=== PATIENT | male | born 1945 | race Caucasian/White ===

== ENCOUNTER → 2020-06-07 14:13 | Outpatient (BNVA) | payer MEDICARE, SELFPAY | PROVIDERS: Family Provider Nurse Practitioner; PCP Nurse Practitioner; Visit Provider Nurse Practitioner | DX: M54.9 Dorsalgia, unspecified (principal); M62.830 Muscle spasm of back; E55.9 Vitamin D deficiency, unspecified | CPT/HCPCS: 80053; 82306; 85025; 86140 ==

== ENCOUNTER 2020-06-08 10:16 | Outpatient (CLI) | payer MEDICARE, SELFPAY ==
--- NOTE | 2020-06-08 10:30 | XR_ITS ---
WS: [id number] Cervical spine, 3 views, 06/08/2020 Clinical Data: M54.9 - Dorsalgia, unspecified Comparison: None. Findings: No compression fractures are seen. There is disc space narrowing at C3-C4, C5-C6 and C6-C7. There is anterior osteophytic spurring at C5, C6 and C7. There is no prevertebral soft tissue swelli ng. The odontoid is unremarkable. The soft tissues of the neck and the lung apices are normal. XR/XR cervical spine 3V* [id number] Impression: 1. Degenerative disc narrowing at C3-C4, C5-C6 and C6-C7. 2. Osteoarthritic spurs at C5-C7.
--- NOTE | 2020-06-08 10:30 | XR_ITS ---
WS: [id number] Thoracic spine, 4 views, 06/08/2020 Clinical Data: M54.9 - Dorsalgia, unspecified Comparison: None. Findings: No compression fractures are seen. The disc heights are normal. There is moderate osteoarthritic spurring from T6 through T12. Osteoporosis is present. The paraverte bral areas are unremarkable. XR/XR thoracic spine 3V* [id number] Impression: Osteoarthritis and osteoporosis.
--- NOTE | 2020-06-08 10:30 | XR_ITS ---
WS: [id number] Lumbar spine, 3 views, 06/08/2020 Clinical Data: M54.9 - Dorsalgia, unspecified Comparison: None. Findings: No compression fractures or subluxation is seen. There is degenerative disc narrowing at L4-L5 and L5 -S1. There is anterior osteoarthritic spurring of the lower thoracic and all lumbar vertebral bodies. . The transverse processes and SI joints are normal. There is calcification in the wall of the abdominal aorta but no aneurysm is seen. XR/XR lumbar spine 2-3V* [id number] Impression: 1. Moderate osteoarthritis of all the lumbar vertebral bodies. 2. Degenerative disc narrowing at L4-L5 and L5-S1.
== END 2020-06-08 10:17 | disposition home or self-care (01) ==
PROVIDERS: Family Provider Nurse Practitioner; PCP Nurse Practitioner; Visit Provider Nurse Practitioner
DX: M54.2 Cervicalgia (principal); M47.816 Spondylosis without myelopathy or radiculopathy, lumbar region; M81.0 Age-related osteoporosis without current pathological fracture; M47.814 Spondylosis without myelopathy or radiculopathy, thoracic region
CPT/HCPCS: 72040; 72072; 72100

== ENCOUNTER → 2020-06-30 10:39 | Outpatient (BNVA) | payer MEDICARE, SELFPAY | PROVIDERS: Family Provider Nurse Practitioner; PCP Nurse Practitioner; Referring Provider Nurse Practitioner; Visit Provider Orthopaedic Surgery | DX: M50.30 Other cervical disc degeneration, unspecified cervical region (principal) | CPT/HCPCS: 72050 ==

== ENCOUNTER 2020-07-06 06:00 | Outpatient (RCR) | payer MEDICARE, SELFPAY | END 2020-07-29 23:59 | disposition home or self-care (01) | LOC: TPT 06:00 | PROVIDERS: PCP Nurse Practitioner; Referring Provider Orthopaedic Surgery; Visit Provider Orthopaedic Surgery | DX: M54.2 Cervicalgia (principal); M54.9 Dorsalgia, unspecified | CPT/HCPCS: 97110; 97140; 97161; G0283 ==

== ENCOUNTER 2020-07-14 15:47 | Outpatient (CLI) | payer MEDICARE, SELFPAY ==
--- NOTE | 2020-07-14 16:00 | MR_ITS ---
WS: [id number] MRI CERVICAL SPINE NONCONTRAST HISTORY: M50.30 - Other cervical disc degeneration, unspecified cervical region COMPARISON: None available. Technique: Multiplanar, multisequence noncontrast imaging of the cervical spine. Very mild increase in the cervical lordosis. 2 mm retrolisthesis of C3 and C5. 2 mm anterolisthesis o f C7. No marrow edema or fracture. Signal within the cervical cord is normal. Visualized posterior fossa is unremarkable. Craniocervical junction, C1 and C2 relationship, odontoid process and soft tissues are normal. C2-C3: Normal. C3-C4: Mild annular disc bulging and osteophytic ridging with a shallow central disc protrusion. Disc osteophyte complexes are causing moderate central and bilateral foraminal stenosis. C4-C5: Mild diffuse annular disc bulging and osteophytic ridging. Mild facet arthritis. Minimal centr al stenosis. Moderate bilateral foraminal stenosis. C5-C6: Diffuse annular disc bulging and osteophytic ridging. More focal disc osteophyte complex in th e RIGHT foramen. Moderate central with moderate to severe bilateral foraminal stenosis. C6-C7: Mild annular disc bulging and osteophytic ridging. Osteophytes are displacing the nerve roots posteriorly. Moderate bilateral foraminal stenosis. C7-T1: Mild annular disc bulging with a focal RIGHT paracentral disc protrusion and annular fissure. Very mild encroachment upon the foramen. Paraspinal soft tissue are normal. MR/MR cervical spin wo con* [id number] IMPRESSION: 1. Multilevel moderate spondylosis throughout the cervical spine. Most signifi cant disc disease at C5-6. 2. Mild retrolisthesis of C3 and C5 and slight anterolisthesis of C7. 3. Moderate central and bilateral foraminal stenosis due to disc osteophyte di sease at C3-4. 4. Moderate central with moderate to severe bilateral foraminal stenosis at C5 -6. 5. Moderate bilateral foraminal stenosis at C4-5 and C6-7. 6. Small focal RIGHT paracentral disc protrusion with annular fissure at C7-T1 without cord contact.
--- NOTE | 2020-07-14 16:45 | MR_ITS ---
WS: [id number] MRI THORACIC SPINE noncontrast. HISTORY: M50.30 - Other cervical disc degeneration, unspecified cervical and thoracic pain. COMPARISON: None available. TECHNIQUE: Multiplanar sequences are performed in sagittal and axial planes. Very slight increase in the thoracic kyphosis centered at T4. No marrow edema or fracture. Signal wit hin the cord is normal. Conus tapers normally and ends near L1. Very minimal anterior wedging of T2 a nd T3. T1-2: Mild bilateral facet arthritis. Mild foraminal narrowing. T2-3: Moderate LEFT and mild RIGHT foraminal stenosis due to facet disease. T3-4: Mild facet arthritis without stenosis. T4-5: Minimal LEFT foraminal narrowing due to facet disease. T5-6: Mild facet arthritis. T6-7: Mild bilateral facet arthritis without stenosis. T7-8: Mild bilateral facet joint arthritis. No stenosis. T8-9: Moderate bilateral facet joint arthritis with mild bilateral foraminal narrowing. T9-10: Moderate bilateral foraminal stenosis predominantly due to facet joint arthritis and ligament um flavum hypertrophy. No disc protrusion. T10-11: Moderate bilateral foraminal stenosis and facet arthritis. T11-12: Mild bilateral facet joint arthritis. MR/MR thoracic spin wo con* [id number] IMPRESSION: 1. No acute thoracic spine fractures. 2. No significant central stenosis. 3. Multilevel foraminal stenosis due to facet joint arthritis and ligamentum f lavum hypertrophy. The most significant narrowing is moderate on the LEFT at T2 -3 and bilateral at T9-10 and T10-11.
== END 2020-07-14 15:48 | disposition home or self-care (01) ==
LOC: RADSHAW 15:49
PROVIDERS: PCP Nurse Practitioner; Visit Provider Orthopaedic Surgery
DX: M50.30 Other cervical disc degeneration, unspecified cervical region (principal); M47.892 Other spondylosis, cervical region; M48.02 Spinal stenosis, cervical region
CPT/HCPCS: 72141; 72146

== ENCOUNTER → 2020-07-22 08:28 | Outpatient (BNVA) | payer MEDICARE, SELFPAY | PROVIDERS: PCP Nurse Practitioner; Referring Provider Orthopaedic Surgery; Visit Provider Anesthesiology Pain Medicine | DX: M48.02 Spinal stenosis, cervical region (principal); M50.30 Other cervical disc degeneration, unspecified cervical region; M47.812 Spondylosis without myelopathy or radiculopathy, cervical region; M47.814 Spondylosis without myelopathy or radiculopathy, thoracic region | CPT/HCPCS: 99205 ==

== ENCOUNTER 2020-07-30 06:00 | Outpatient (RCR) | payer MEDICARE, SELFPAY | END 2020-08-29 23:59 | disposition home or self-care (01) | LOC: TPT 06:00 | PROVIDERS: PCP Nurse Practitioner; Referring Provider Orthopaedic Surgery; Visit Provider Orthopaedic Surgery | DX: M54.2 Cervicalgia (principal); M54.9 Dorsalgia, unspecified | CPT/HCPCS: 97110; 97140; 97164 ==

== ENCOUNTER → 2020-08-02 14:53 | Outpatient (BNVA) | payer MEDICARE, SELFPAY | PROVIDERS: PCP Nurse Practitioner; Visit Provider Anesthesiology Pain Medicine | DX: M48.02 Spinal stenosis, cervical region (principal) | CPT/HCPCS: 62321; J1100 ==

== ENCOUNTER → 2020-08-16 13:00 | Outpatient (BNVA) | payer MEDICARE, SELFPAY | PROVIDERS: PCP Nurse Practitioner; Visit Provider Anesthesiology Pain Medicine | DX: G89.29 Other chronic pain (principal); M54.12 Radiculopathy, cervical region; M48.02 Spinal stenosis, cervical region | CPT/HCPCS: 62321; J1100 ==

== ENCOUNTER → 2020-09-01 14:05 | Outpatient (BNVA) | payer MEDICARE, SELFPAY | PROVIDERS: PCP Nurse Practitioner; Visit Provider Anesthesiology Pain Medicine | DX: M48.02 Spinal stenosis, cervical region (principal); M50.30 Other cervical disc degeneration, unspecified cervical region; M47.812 Spondylosis without myelopathy or radiculopathy, cervical region; M47.814 Spondylosis without myelopathy or radiculopathy, thoracic region | CPT/HCPCS: 99213 ==

== ENCOUNTER → 2020-11-24 12:51 | Outpatient (BNVA) | payer MEDICARE, SELFPAY | PROVIDERS: PCP Nurse Practitioner; Visit Provider Anesthesiology Pain Medicine | DX: G89.29 Other chronic pain (principal); M48.02 Spinal stenosis, cervical region; M50.30 Other cervical disc degeneration, unspecified cervical region; M47.812 Spondylosis without myelopathy or radiculopathy, cervical region; M47.814 Spondylosis without myelopathy or radiculopathy, thoracic region | CPT/HCPCS: 99213 ==

== ENCOUNTER → 2021-05-18 13:01 | Outpatient (BNVA) | payer MEDICARE, SELFPAY | PROVIDERS: PCP Nurse Practitioner; Visit Provider Anesthesiology Pain Medicine | DX: M48.02 Spinal stenosis, cervical region (principal); M50.30 Other cervical disc degeneration, unspecified cervical region; M47.814 Spondylosis without myelopathy or radiculopathy, thoracic region; M47.812 Spondylosis without myelopathy or radiculopathy, cervical region; Z87.891 Personal history of nicotine dependence | CPT/HCPCS: 99213 ==

== ENCOUNTER → 2021-11-01 09:47 | Outpatient (BNVA) | payer MEDICARE, SELFPAY | PROVIDERS: PCP Nurse Practitioner; Visit Provider Anesthesiology Pain Medicine | DX: M48.02 Spinal stenosis, cervical region (principal); M50.30 Other cervical disc degeneration, unspecified cervical region; M47.814 Spondylosis without myelopathy or radiculopathy, thoracic region; M47.812 Spondylosis without myelopathy or radiculopathy, cervical region; Z87.891 Personal history of nicotine dependence | CPT/HCPCS: 99213 ==

== ENCOUNTER 2022-06-25 17:08 | Emergency (ER) | payer MEDICARE, SELFPAY ==
[2022-06-25 17:11] VITALS: PULSE 65; RESP 16; TEMP 36.1; O2SAT 98; BMI 32.1
[2022-06-25 17:19] VITALS: BP 123/93
--- NOTE | 2022-06-25 18:07 | CTR_ITS ---
PROCEDURE INFORMATION: Exam: CT Head Without Contrast Exam date and time: 06/25/2022 6:30 PM Age: 77 years old Clinical indication: Syncope and collapse TECHNIQUE: Imaging protocol: Computed tomography of the head without contrast. Radiation optimization: All CT scans at this facility use at least one of these dose optimization techniques: automated exposure control; mA and/or kV adjustment per patient size (includes targeted exams where dose is matched to clinical indication); or iterative reconstruction. REPORTING DATA: Count of CT and Cardiac NM exams in prior 12 months: This patient has received 0 known CTs and 0 known cardiac nuclear medicine studies in the 12 months prior to the current study. COMPARISON: No relevant prior studies available. RADIATION DOSE METRICS: Total DLP (mGy-cm): 1079.28 FINDINGS: Brain: No acute intracranial hemorrhage. No acute infarct. No intra-axial or extra-axial masses. White-white matter differentiation is preserved. No cerebral edema. No extra-axial fluid collections. No midline shift. Mild atrophy of the brain parenchyma. Mildly decreased attenuation in the deep white matter, consistent with mild chronic microangiopathic change. Cerebral ventricles: No hydrocephalus. Paranasal sinuses: Opacification in the visualized left maxillary sinus. Other visualized paranasal sinuses are clear. Mastoid air cells: Small amount of fluid in the right mastoid air cells. Left mastoid air cells are clear. Orbital cavities: No acute abnormality in the visualized orbits. Dental: The patient is edentulous. Bones/joints: No acute fracture. Soft tissues: No acute abnormality of the extracranial soft tissues. Vasculature: Atherosclerotic changes in the visualized arteries. CT/CT head wo con* [id number] IMPRESSION: 1. No acute abnormality of the brain. 2. Opacification in the visualized left maxillary sinus. 3. Small amount of fluid in the right mastoid air cells. 4. Mild atrophy of the brain parenchyma. 5. Mild chronic white matter microangiopathic change. 6. Incidental/nonacute findings are listed in the report.
--- NOTE | 2022-06-25 18:07 | XRR_ITS ---
PROCEDURE INFORMATION: Exam: XR Chest Exam date and time: 06/25/2022 6:12 PM Age: 77 years old Clinical indication: Other: Syncope TECHNIQUE: Imaging protocol: Radiologic exam of the chest. Views: 1 view. COMPARISON: No relevant prior studies available. FINDINGS: Lungs: Lungs are clear bilaterally. Pleural spaces: No pleural effusion. No pneumothorax. Heart/Mediastinum: Cardiac silhouette is moderately enlarged. Mediastinal contours are unremarkable. Bones/joints: Unremarkable for age. XR/XR chest 1V portable [id number] IMPRESSION: 1. No acute cardiopulmonary process. 2. Incidental/nonacute findings are listed in the report.
--- NOTE | 2022-06-25 18:07 | ECG_ITS ---
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 Measurements Intervals [place] Rate: 80 P: 0 MD: 0 QRS: -18 QRSD: 117 T: 28 QT: 381 QTc: 439 Interpretive Statements ATRIAL FIBRILLATION WITH ABERRANT CONDUCTION OR VENTRICULAR PREMATURE COMPLEXES MODERATE INTRAVENTRICULAR CONDUCTION DELAY [105+ ms QRS DURATION, 80+ ms Q/S IN V1/V2, NO Q AND 60+ ms R IN I/aVL/V5/V6] NONSPECIFIC T-WAVE ABNORMALITY No previous ECG available for comparison Electronically Signed On 06-25-2022 19:27:50 CDT by Bhupendra Carbajal M.D. [id number]
--- NOTE | 2022-06-25 18:22 | W.ED.SYNCOPE ---
HPI - Syncope General: Chief Complaint: Syncope Stated Complaint: SYNCOPAL EPISODE Time Seen by Provider: 06/25/22 18:13 Source: patient and EMS Mode of arrival: EMS Limitations: no limitations History of Present Illness: 77-year-old male states roughly an hour and a half ago he had stood up and went outside states he does not remember what happened but he had passed out outside woke up he states he stood up and felt a little dizzy again he denies any chest pain denies any vomiting or diarrhea he states he feels much improved currently. He denies any worsening proving factors he denies hitting his head or headache at this time. Associated symptoms: Deny abdominal pain, fever(s), headache(s) or nausea Review of Systems Const: Denies: fever(s), chills, body aches or change in appetite Eyes: Denies: blurry vision or eye discomfort ENMT: Denies: throat pain or dental pain Card: Reports: syncope Resp: Denies: dyspnea GI: Denies: abdominal pain, nausea, vomiting or diarrhea : Denies: dysuria Musc: Denies: neck pain or back pain Skin/Breast: Denies: rash Neuro: Denies: headache(s) Psych: Denies: depression Rangel/Lymph: Denies: easy bruising All/Imm: Denies: urticaria PFSH ED PFSH: Medical History Essential (primary) hypertension Seasonal allergies Surgical History History of appendectomy History of elbow surgery left 1966 History of knee surgery Family History Other Cancer Hypertension Denies family history of Bleeding disorder Social History Smoking and tobacco status: former smoker Second hand smoke exposure: No Smoking risk assessment/counseling performed?: No Alcohol intake: never Desire information about alcohol rehabilitation?: No Counseling given: No Desire information about substance/drug rehabilitation?: No Counseling given: No Adopted: No Caregiver/support person: No Lives independently: Yes Household members: spouse Housing: House Marital status: Current occupational status: retired Current gender identity: Male Physical Exam Const: COMMON NORMALS: no acute distress, patient oriented x3 and healthy appearing HENMT: COMMON NORMALS: normocephalic and atraumatic HEAD & SCALP: normocephalic and atraumatic Eye: COMMON NORMALS: Equal, round and reactive pupils present and EOMs intact bilaterally PUPIL: Yes Equal, round and reactive pupils present Neck/C-Spine: COMMON NORMALS: full ROM and supple Chest: COMMONS NORMALS: normal inspection of the chest and normal palpation of entire chest wall Resp: COMMON NORMALS: normal respiratory effort, No retractions, No use of accessory muscles and clear to auscultation bilaterally AUSCULTATION: clear to auscultation bilaterally Cardio: COMMON NORMALS: regular rate, regular rhythm and No murmurs present (Cardio) RATE: regular rate RHYTHM: regular rhythm GI: COMMON NORMALS: Normal to inspection, nondistended, normoactive bowel sounds present, Soft to palpation, non-tender and no masses PALPATION: Yes Soft to palpation Extremity: COMMON NORMALS: normal to inspection and full ROM Neuro: COMMON NORMALS: patient oriented x3, moves all extremities and no focal motor deficits Psych: COMMON NORMALS: mental status grossly normal, Normal thought process present and cooperative THOUGHT PROCESS: Normal thought process present Skin: COMMON NORMALS: no rashes or lesions noted and no wounds GENERAL SKIN EXAM: no rashes or lesions noted Course Vital Signs: Vital signs: Vital Signs Temperature 96.9 F L 06/25/22 17:11 Pulse Rate 86 06/25/22 21:00 Respiratory Rate 15 06/25/22 21:00 Blood Pressure 142/94 06/25/22 21:00 Pulse Oximetry 96 06/25/22 21:00 Oxygen Delivery Me thod 06/25/22 21:00 MDM - Syncope Medical Decision Making Patient presents here with a syncopal event he does have A-fib here on both his EKG his rate is controlled he has no known history of it his troponins here normal he is felt good I spoke to police radio dispatcher Dr. Aggarwal I spoke to family and informed him with a syncopal event his new onset A-fib but I did recommend admission as did the police radio dispatcher he states he feels much improved and would rather go home. He does not want to stay in the hospital. Will discharge at this time on Eliquis we will set him up for 24-hour heart monitor and getting follow-up with cardiology he understands and agrees to the plan. Inform if he has any symptoms he is to return immediately he understands. Lab Data 06/25/22 18:55 06/25/22 18:55 Radiology Impressions Chest X-Ray 06/25/22 18:07 IMPRESSION: 1. No acute cardiopulmonary process. 2. Incidental/nonacute findings are listed in the report. Head CT 06/25/22 18:07 IMPRESSION: 1. No acute abnormality of the brain. 2. Opacification in the visualized left maxillary sinus. 3. Small amount of fluid in the right mastoid air cells. 4. Mild atrophy of the brain parenchyma. 5. Mild chronic white matter microangiopathic change. 6. Incidental/nonacute findings are listed in the report. Laboratory Results WBC 10.6 10^3/uL (4.0-10.0) H 06/25/22 18:55 RBC 5.10 10^6/uL (4.1-5.3) 06/25/22 18:55 Hgb 14.1 g/dL (11.7-16.6) 06/25/22 18:55 Hct 43.1 % (42.0-52.0) 06/25/22 18:55 MCV 84.5 fl (80-94) 06/25/22 18:55 MCH 27.6 pg (28.0-34.0) L 06/25/22 18:55 MCHC 32.7 g/dL (30.0-36.0) 06/25/22 18:55 RDW 15.5 % (12.1-15.1) H 06/25/22 18:55 Plt Count 178 10^3/cmm (130-400) 06/25/22 18:55 MPV 11.1 fL (7.4-10.4) H 06/25/22 18:55 Neut % (Auto) 81.4 % 06/25/22 18:55 Lymph % (Auto) 9.4 % 06/25/22 18:55 [place] % (Auto) 6.5 % 06/25/22 18:55 Eos % (Auto) 0.3 % 06/25/22 18:55 Baso % (Auto) 0.7 % 06/25/22 18:55 Neut # (Auto) 8.60 10^3/uL (1.8-7.7) H 06/25/22 18:55 Lymph # (Auto) 1.0 10^3/uL (0.8-4.8) 06/25/22 18:55 [place] # (Auto) 0.7 10^3/uL (0.2-0.9) 06/25/22 18:55 Eos # (Auto) 0.0 10^3/uL (0.0-0.8) 06/25/22 18:55 Baso # (Auto) 0.1 10^3/uL (0.0-0.1) 06/25/22 18:55 Nucleated RBC % (auto) 0 % 06/25/22 18:55 Nucleated RBCs # 0.0 /100WBC 06/25/22 18:55 Sodium 139 mmol/L (136-145) 06/25/22 18:55 Potassium 4.2 mmol/L (3.5-5.1) 06/25/22 18:55 Chloride 101 mmol/L (98-107) 06/25/22 18:55 Carbon Dioxide 25 mmol/L (22-29) 06/25/22 18:55 Anion Gap 17.2 (5-19) 06/25/22 18:55 BUN 12 mg/dL (8-23) 06/25/22 18:55 Creatinine 0.8 mg/dL (0.7-1.2) 06/25/22 18:55 GFR Calculation Not Reportable 06/25/22 18:55 Glucose 111 mg/dL (65-115) 06/25/22 18:55 Calculated Osmolality 288 mOsm/kg (285-295) 06/25/22 18:55 Calcium 8.7 mg/dL (8.5-10.5) 06/25/22 18:55 Total Bilirubin 0.5 mg/dL (0.15-1.2) 06/25/22 18:55 AST 15 U/L (0-40) 06/25/22 18:55 ALT 13 U/L (0-41) 06/25/22 18:55 Alkaline Phosphatase 61 U/L (40-130) 06/25/22 18:55 Troponin T Baseline 23 ng/L (0-15) H 06/25/22 18:55 Troponin T 120 Minute 19.62 ng/L (0-15) H 06/25/22 21:08 Delta Troponin T -3.38 ABS# (0-10) L 06/25/22 21:08 Total Protein 7.1 g/dL (6.6-8.7) 06/25/22 18:55 Albumin 4.3 g/dL (3.5-5.2) 06/25/22 18:55 Globulin 2.8 g/dL (1.3-4.6) 06/25/22 18:55 Urine Color Yellow (Yellow) 06/25/22 19:28 Urine Appearance Clear (CLEAR) 06/25/22 19:28 Urine pH 5 (5-7) 06/25/22 19:28 Ur Specific [place] 1.025 (1.005-1.030) 06/25/22 19:28 Urine Protein Trace (Negative) 06/25/22 19:28 Urine Glucose (UA) Norm (Normal) 06/25/22 19:28 Urine Ketones 1+ (Negative) H 06/25/22 19:28 Urine Blood Neg (Negative) 06/25/22 19:28 Urine Nitrate Negative (Negative) 06/25/22 19:28 Urine Bilirubin Neg (Negative) 06/25/22 19:28 Urine Urobilinogen Neg mg/dL (Negative) 06/25/22 19:28 Ur Leukocyte Esterase Negative (Negative) 06/25/22 19:28 Urine RBC Rare /hpf (0-2) 06/25/22 19:28 Urine WBC None /hpf (0-5) 06/25/22 19:28 Ur Squamous Epith Cells 0-4 /hpf (0-5) H 06/25/22 19:28 Amorphous Sediment 2+ /hpf 06/25/22 19:28 Urine Bacteria None /hpf (NONE) 06/25/22 19:28 Hyaline Casts 0-4 /lpf H 06/25/22 19:28 Urine Mucus 2+ /hpf 06/25/22 19:28 Discharge Plan Discharge Patient Disposition: Home Clinical Impression: Syncope, Atrial fibrillation Condition: Stable Prescriptions: New Eliquis 5 mg tablet 5 mg PO BID Qty: 60 0RF No Action gabapentin 300 mg capsule 300 mg PO TID Qty: 90 3RF ibuprofen 600 mg tablet 600 mg PO Q8H PRN (Reason: pain) Qty: 14 0RF doxycycline hyclate 100 mg capsule 100 mg PO BID 7 Days Qty: 14 0RF Discharge Orders: Discharge ED (Routine); Ordered 06/25/22 Ordered By: Deepak Salcedo Referrals: Roman Aggarwal MD [Physician] - 1-3 days Geovanni Pavon FNP-C [Primary Care Provider] - Discharge Diet: Advance as tolerated Discharge Activity: Resume usual activity Patient Instructions: A-fib (Atrial Fibrillation) (ED), Syncope (ED) Coding Level of Care Code ED Scrap Cutter for Mer Henry
[2022-06-25 19:21] LABS: Basophils # 0.1 10^3/uL (0.0-0.1); Basophils % 0.7 %; Eosinophils % 0.3 %; Hematocrit 43.1 % (42.0-52.0); Hemoglobin 14.1 g/dL (11.7-16.6); Lymphocytes % 9.4 %; Mean Corpuscular HGB Conc 32.7 g/dL (30.0-36.0); Mean Corpuscular Hemoglobin 27.6 pg (28.0-34.0); Mean Corpuscular Volume 84.5 fl (80-94); Mean Platelet Volume 11.1 fL (7.4-10.4); Monocytes # 0.7 10^3/uL (0.2-0.9); Monocytes % 6.5 %; Neutrophils % 81.4 %; Nucleated Red Blood Cells % 0 %; Platelet Count 178 10^3/cmm (130-400); Red Cell Distribution Width 15.5 % (12.1-15.1); White Blood Count 10.6 10^3/uL (4.0-10.0)
[2022-06-25 19:25] LABS: Troponin(5th) Baseline 23 ng/L (0-15)
[2022-06-25 19:27] LABS: Alanine Aminotransferase 13 U/L (0-41); Albumin Level 4.3 g/dL (3.5-5.2); Alkaline Phosphatase 61 U/L (40-130); Anion Gap 17.2 (5-19); Aspartate Amino Transferase 15 U/L (0-40); Blood Urea Nitrogen 12 mg/dL (8-23); Calcium 8.7 mg/dL (8.5-10.5); Carbon Dioxide 25 mmol/L (22-29); Chloride 101 mmol/L (98-107); Globulin 2.8 g/dL (1.3-4.6); Glucose 111 mg/dL (65-115); Osmolality Calculated 288 mOsm/kg (285-295); Potassium 4.2 mmol/L (3.5-5.1); Sodium 139 mmol/L (136-145); Total Bilirubin 0.5 mg/dL (0.15-1.2); Total Protein 7.1 g/dL (6.6-8.7)
[2022-06-25 19:30] VITALS: BP 130/75; PULSE 83; RESP 22; O2SAT 95
[2022-06-25 20:02] LABS: Add Urine Microscopic? YES; Amorphous Sediment Urine 2+ /hpf; Bilirubin Urine Neg (Negative); Blood Urine Neg (Negative); Glucose Urine UA Norm (Normal); Ketones Urine 1+ (Negative); Leukocyte Esterase Urine Negative (Negative); Mucus Urine 2+ /hpf; Nitrate Urine Negative (Negative); Protein Urine Trace (Negative); RBC Urine RARE /hpf (0-2); Specific Gravity, Urine 1.025 (1.005-1.030); Squamous Epithelial Cell Urine 0-4 /hpf (0-5); Urine Appearance Clear (CLEAR); Urine Color Yellow (Yellow); Urobilinogen Urine Neg (Negative); pH Urine 5 (5-7)
[2022-06-25 20:03] LABS: Add Urine Culture? No; Hyaline Casts Urine 0-4 /lpf
--- NOTE | 2022-06-25 20:07 | ECG_ITS ---
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 Measurements Intervals [place] Rate: 84 P: 0 TN: 0 QRS: -22 QRSD: 118 T: 60 QT: 380 QTc: 451 Interpretive Statements ATRIAL FIBRILLATION MODERATE INTRAVENTRICULAR CONDUCTION DELAY [105+ ms QRS DURATION, 80+ ms Q/S IN V1/V2, NO Q AND 60+ ms R IN I/aVL/V5/V6] NONSPECIFIC ST & T-WAVE ABNORMALITY Compared to ECG 06/25/2022 18:07:46 Ventricular premature complex(es) no longer present Aberrant conduction of supraventricular beat(s) no longer present T-wave abnormality still present Electronically Signed On 06-27-2022 0:35:41 CDT by Roman Aggarwal M.D. [id number]
[2022-06-25 21:00] VITALS: BP 142/94; PULSE 86; RESP 15; O2SAT 96
[2022-06-25 21:33] LABS: Troponin 5 2HR 19.62 ng/L (0-15); Troponin 5 2HR Delta -3.38 ABS# (0-10)
[2022-06-25 22:05] VITALS: BP 127/94; PULSE 95; RESP 17; O2SAT 95
[2022-06-25 22:07] VITALS: BP 127/94; PULSE 94; RESP 18; O2SAT 95
--- NOTE | 2022-06-26 09:59 | DCPLANNER ---
Addendum entered by Faby Hurd 08/16/22 10:01: Patient had a follow up appointment scheduled with heart care - patient did attend appointment. Addendum entered by Faby Hurd 07/10/22 14:51: Patient had a follow up appointment scheduled with heart care for a 24 hour monitor - patient did attend appointment Addendum entered by Faby Hurd 06/27/22 11:35: Patient has an appointment scheduled for Saturday, July 09, 2022 at 10:00 for a 24 hour halter monitor. Patient has an appointment scheduled for Monday, August 15, 2022 at 2:[address] Aggarwal at [facility] Original Note: territory sales manager medical had message to schedule a follow up appointment for patient . territory sales manager medical sent patients information to the front office staff at [facility]. Patients information will be printed and reviewed. Clinic will call patient with appointment information. territory sales manager medical also had an order for a 24 hour halter monitor. territory sales manager medical sent signed order to heart care, who will call patient with appointment information.
== END 2022-06-25 22:08 | disposition home or self-care (01) ==
PROVIDERS: Nurse Practitioner Family; Emergency Provider Emergency Medicine; PCP Nurse Practitioner
DX: R55 Syncope and collapse (principal); I48.91 Unspecified atrial fibrillation; I10 Essential (primary) hypertension; Z87.891 Personal history of nicotine dependence
CPT/HCPCS: 36415; 70450; 71045; 80053; 81001; 84484; 85025; 93005; 99285

== ENCOUNTER → 2022-07-09 09:46 | Outpatient (BNVA) | payer MEDICARE, SELFPAY | PROVIDERS: PCP Family Medicine; Visit Provider Internal Medicine Cardiovascular Disease | DX: R55 Syncope and collapse (principal) | CPT/HCPCS: 93225 ==

== ENCOUNTER → 2022-08-15 14:21 | Outpatient (BNVA) | payer MEDICARE, SELFPAY | PROVIDERS: PCP Family Medicine; Visit Provider Internal Medicine Cardiovascular Disease | DX: I48.91 Unspecified atrial fibrillation (principal); R03.0 Elevated blood-pressure reading, without diagnosis of hypertension; R07.9 Chest pain, unspecified; Z79.01 Long term (current) use of anticoagulants; Z87.891 Personal history of nicotine dependence | CPT/HCPCS: 99204; 99205 ==

== ENCOUNTER 2022-08-23 06:43 | Outpatient (CLI) | payer MEDICARE, SELFPAY ==
--- NOTE | 2022-08-23 07:01 | ECG_ITS ---
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 Interpretive Statements NAME OF STUDY: LEXISCAN SESTAMIBI STRESS TEST INDICATION: [, ] Procedure: At the baseline, the blood pressure was 123/87 mmHg with a heart rate of 64 bpm. The electrocardiogram showed atrial fibrillation, normal axis with normal ST and T's. The Lexiscan was infused over a period of 20 seconds. A total of 0.4 mg of Lexiscan was infused. The stress phase was continued for a total of 5 minutes. Heart rate was at the end of stress phase was 69 bpm and a blood pressure of 132/84 mmHg. The EKG at the peak infusion revealed atrial fibrillation with no significant ST-T wave changes. Sestamibi was injected 20 seconds after the Lexiscan infusion. Blood pressure at the end of recovery phase was 124/83 mmHg with a heart rate of 70 bpm. Conclusion: 1. Normal EKG response to Lexiscan infusion 2. No Lexiscan induced chest pain or cardiac arrhythmia. 3. Normal blood pressure and heart rate response. 4. Sestamibi/sestamibi perfusion scan pending; see separate report. Electronically Signed On 09-13-2022 9:26:59 CDT by Bhupendra Carbajal M.D. [id number]
--- NOTE | 2022-08-23 07:02 | NMCV_ITS ---
NM oumou perf SPECT r/s* [id number] Alvin Aviles Age: 77 Gender: M : 1945 Exam Date: 08/23/2022 07:57 Ordering Phys: Roman Aggarwal MD ([email or web address]) Technologist: JADON Chan Exam Location: [facility] Indications: CORONARY ANGIOPLASTY STATUS STRESS TEST Please see separate stress test report in [facility] for full findings IMAGE PROTOCOL Rest/Stress 1 Lexiscan Day Radiopharmaceutical Dose (mCi) Administration Site Administered by Rest: Tc-99m 10.9 IV JADON Magana Sestamibi Stress:Tc-99m 32.6 IV JADON Magana Sestamibi Rest: 23-Aug-2022 60 Discovery 630 Stress: 23-Aug-2022 30 Discovery 630 0.4mg Lexiscan. Images obtained in supine and prone position. SPECT RESULTS Technical Quality: Excellent Raw Data Analysis: Normal Image Corrections: No attenuation or motion correction applied Summed Stress Score: 20 Summed Rest Score: 22 Summed Difference Score: 0 PERFUSION FINDINGS Large in size, mostly fixed perfusion defect is noted in apical, inferior and inferolateral lugo. 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 Small area of devonte-infarct ischemia is seen in RCA territory. FUNCTIONAL RESULTS (calculated via Gated SPECT) Stress Image LV EF (%): 51 Stress EDV (mL):184 TID: 1.12 Stress ESV (mL):90 FUNCTIONAL FINDINGS: There is normal left ventricular systolic function. IMPRESSIONS 1. 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 Minimal area of devonte-infarct ischemia seen in RCA territory. 2. LV systolic function is normal Bhupendra Carbajal MD (Electronically Signed) Final Date: 24 Aug 2022 15:21 S
[2022-08-23 07:03] VITALS: BMI 32.5
[2022-08-23] MEDS: regadenoson 0.4 Mg/5 ml Syringe IVP (08:30)
[2022-08-23 08:51] VITALS: BP 131/82; PULSE 84
== END 2022-08-23 06:44 | disposition home or self-care (01) ==
PROVIDERS: PCP Family Medicine; Visit Provider Internal Medicine Cardiovascular Disease
DX: R07.9 Chest pain, unspecified (principal); Z98.61 Coronary angioplasty status; I25.2 Old myocardial infarction
CPT/HCPCS: 36415; 78452; 93017; 96374; A9500; J2785

== ENCOUNTER 2022-09-13 13:22 | Outpatient (CLI) | payer MEDICARE, SELFPAY ==
--- NOTE | 2022-09-13 13:45 | USCV_ITS ---
Alvin Aviles Age: 77 Gender: M : 1945 Exam Date: 09/13/2022 13:54 Ordering Phys: Roman Aggarwal MD ([email or web address]) Technologist: Dav Red Exam Location: [facility] [place] Indication: chest pain/AFIB BP: 159 / 59 HR: 76 Rhythm: Sinus Technical Quality: Adequate MEASUREMENTS (Male / Female) Normal Values 2D ECHO LVOT Diameter 2.0 cm LV Ejection Fraction MOD 2C 50.5 % LV Ejection Fraction 2C AL 48.1 % LA Diameter 3.8 cm LA Width 4.5 cm LA Height 5.1 cm RA Width 4.5 cm RA Height 5.6 cm Aorta at Sinotubular Diameter 2.3 cm IVC Diameter 1.9 cm M-MODE Aortic Annulus Diameter 2.7 cm LA Ao Ratio MM 1.5 MV E Point Septal Separation 1.3 cm DOPPLER AV Peak Velocity 179.7 cm/s LVOT Peak Velocity 71.0 cm/s AV Area Cont Eq vti 1.2 cm squared AV Area Cont Eq pk 1.2 cm squared MV Peak Velocity 119.0 cm/s MV Area PHT 5.8 cm squared Mitral E to A Ratio 3.0 MV E' Velocity 49.0 cm/s Mitral E to MV E' Ratio 10.0 Mitral E to LV E' Lateral Ratio 7.9 Mitral E to LV E' Septal Ratio 13.8 TR Peak Velocity 342.8 cm/s TR Peak Gradient 47.0 mmHg TR Mean Velocity 265.1 cm/s TR Mean Gradient 30.2 mmHg TR Velocity Time Integral 95.4 cm Right Atrial Pressure 3.0 mmHg Pulmonary Artery Systolic Pressu 50.0 mmHg PV Peak Velocity 86.3 cm/s RV Acceleration Time 0.1 s RV Ejection Time 0.3 s RV AcT/ET 0.4 FINDINGS Left Ventricle Left ventricle is normal size. LV systolic function is normal with EF of 50 to 55%. No regional wall motion normalities are seen. Right Ventricle Normal in size and function Right Atrium Normal in size Left Atrium Normal in size Mitral Valve Structurally normal valve. Mild to moderate mitral regurgitation. Aortic Valve Structurally normal aortic valve. No significant stenosis or regurgitation seen Tricuspid Valve Mild tricuspid regurgitation. RVSP is 40 to 45 mmHg. This is consistent with mild pulmonary hypertension. Pulmonic Valve Not well-visualized. Mild pulmonic regurgitation Pericardium Normal Aorta Normal in size IVC Appears to be normal CONCLUSIONS LV systolic function is normal with EF of 50 to 55%. Mild to moderate mitral regurgitation Mild tricuspid regurgitation. Mild pulmonary hypertension Mild pulmonic regurgitation. No comparison studies are available Bhupendra Carbajal MD (Electronically Signed) Final Date: 13 September 2022 17:44 S
== END 2022-09-13 13:23 | disposition home or self-care (01) ==
LOC: RAD 13:28
PROVIDERS: PCP Family Medicine; Visit Provider Internal Medicine Cardiovascular Disease
DX: I34.0 Nonrheumatic mitral (valve) insufficiency (principal); I48.91 Unspecified atrial fibrillation; R07.9 Chest pain, unspecified; R03.0 Elevated blood-pressure reading, without diagnosis of hypertension; R06.09 Other forms of dyspnea
CPT/HCPCS: 93306; 99204; 99205

== ENCOUNTER → 2022-09-19 14:50 | Outpatient (BNVA) | payer MEDICARE, SELFPAY | PROVIDERS: PCP Family Medicine; Visit Provider Nurse Practitioner Family | DX: I48.91 Unspecified atrial fibrillation (principal); R94.39 Abnormal result of other cardiovascular function study; Z87.891 Personal history of nicotine dependence; I45.9 Conduction disorder, unspecified | CPT/HCPCS: 93005; 99213 ==

== ENCOUNTER 2022-10-05 14:09 | Observation (INO) | payer MEDICARE, SELFPAY ==
[2022-10-05] VITALS (53 sets, daily range): BP systolic 106–129; BP diastolic 63–85; PULSE 60–83; RESP 16–21; TEMP 36.6–36.8; O2SAT 93–97; BMI 31.9
--- NOTE | 2022-10-05 11:00 | XACV_ITS ---
Exam Room: 2 Ht: 188 cm Wt: 113 kg BSA: 2.46 m2 Gender: Male : 1945 Exam Priority: Routine Procedure(s): Procedure Description: Diagnostic procedure Procedure Description: Left Heart Catheterization Procedure Description: Left ventriculography Procedure Description: Coronary Angiography Procedure Description: Pressure Wire Jasen AVERY; Diagnostic Cath Status: Elective Diagnostic Findings * The left main is a medium caliber with relative was found to have around 30% eccentric narrowing at the ostium. Mild diffuse intimal irregularities were noted in the rest of the vessel.. * The left anterior descending artery is a medium caliber vessel which appears to wrap around the LV apex. The proximal LAD was found to have a moderate calcification. It gives of a high diagonal branch. Around the origin of this vessel, there was 60 to 70% segmental narrowing in the LAD. The mid and distal segment of the artery were found to have minimal intimal irregularities. The first septal plate former is a small caliber vessel but much larger than all the other septal perforators.. * The left circumflex artery is a medium caliber vessel which appears to have diffuse intimal irregularities proximally. Increase of a small high obtuse marginal branch. Then the artery appears to be tapering down to a complete occlusion. Minimal grade 1-2 left to left collaterals were noted. * The right coronary artery is a relatively small nondominant vessel with no significant stenotic lesions. PCI Status: Elective Interventional Findings * IFR of the left main coronary artery was performed first. The value was 1.00. Subsequently IFR of the proximal LAD at the bifurcation was performed. The value was 0.96. Therefore, no intervention was performed. Conclusions 1. 77-year-old white male with no significant past medical history, presenting with an episode of collapse followed by chest tightness with exertion. Also was having significant shortness of breath with activities. Echocardiogram revealed the LV ejection fraction around 50%. Myocardial perfusion imaging revealing large areas of fixed revisit the very small areas of visible defects. Patient continued to have chest tightness/heaviness and shortness of breath with exertion. To further evaluate his coronary status, a cardiac catheterization was recommended. Patient underwent left heart catheterization with a left and right coronary angiogram today. The findings are as follows. 2. 30% ostial left main disease. Around 60% segmental narrowing in the proximal to mid LAD. Total occlusion of the left circumflex artery proximally. Nondominant right coronary artery with no significant lesions. LV gram revealing severe hypokinesia of the basal inferior and mid inferior wall segments. Mild diffuse akinesia of the LV apex. LVEDP of 27 mmHg. The LV ejection fraction around 37%((visual).. 3. In view of the patient's symptoms, in order to better evaluate the functional significance of the lesion in the proximal to mid LAD, an FFR was thought to be appropriate. I discussed this with the Dr. Griffin who agreed with this plan. The IFR across the left main was 1.0 and that echo was the LAD lesion was 0.95. Diagnostic RX Recommendation: medical therapy and/or counseling Ventriculography Ejection Fraction: 37.0 % LV EDP: 27 mmHg Left Ventriculography Findings: * The LV gram was performed in the COLE projection. The LV cavity appears to be mildly dilated. There was severe hypokinesia of the basal and mid inferior wall segments. The overall LV ejection fraction was around 37%. No significant mitral valve prolapse or mitral regurgitation. No filling defects are noted.. Pressures Phase:Rest AO : 105 / 54 ( 74 ) @ 1:30:00 PM 100 / 61 ( 79 ) @ 1:33:00 PM 92 / 58 ( 75 ) @ 1:39:00 PM 140 / 68 ( 93 ) @ 1:46:00 PM 126 / 55 ( 87 ) @ 1:46:00 PM 112 / 61 ( 85 ) @ 2:16:00 PM LV : 124 / 12 / 27 @ 1:44:00 PM 127 / 14 / 29 @ 1:45:00 PM 116 / @ 1:46:00 PM Valves Phase:DefaultPhase AV : 0.0 @ 1:40:38 PM 0.0 @ 1:40:38 PM AV Mean Gradient: 0.0 @ 1:40:38 PM 0.0 @ 1:40:38 PM Clinical Evaluation EBL: 5mL-10mL Procedural Details Procedure Consent Obtained. Admit Source: Out Patient. Pre-Procedure Time Out. Identified patient by full name and date of as verbalized by the patient/guarantor. Does the consent match the physician's order: Yes. Accurate & Complete Informed Consent: Yes. Inpatient/Outpatient History & Physical on Chart: Yes. If H&P is completed, is and addenduem needed: No; If yes, is the addendum complete: N/A. Visualize and Verify Site with Patient/Guarantor: N/A. Relevant Radiology Images available: Yes. The risks, benefits, and alternatives of sedation and/or procedure were discussed by physician. The patient agrees to continue. Procedure started. [facility] Clinical Fraility Score: 3: Managing Well. 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 Chest Pain Symptom Assessment: Atypical Angina. Correct patient, site and procedure confirmed by cath team. PERRLA. Strong, equal hand development eng bilaterally. Lungs clear x 5 lobes. IV Site on Arrival: 20 gauge in the right anticubital. IV Fluids: 0.9% NaCl at KVO. 0 mL infused prior to laboratory monitor. Pre Procedural Pulses: bilateral dorsalis pedis was 3+. Pre Procedural Pulses: bilateral posterior tibial was 3+. Pre Procedural Pulses: bilateral radial was 3+. Oxygen started at 2liters/min via nasal canula. right groin was prepped with chloroprep then draped in the usual sterile fashion. right radial was prepped with chloroprep then draped in the usual sterile fashion. Physician notified. Baseline sample Acquired. HR: 64 BPM. Physician arrived. Physician scrubbed in. Immediate Pre-Procedure Time Out. Correct Patient: Yes; Correct Procedure: Yes; Correct Site: Yes; Correct Patient Position: Yes; Correct Supplies: Yes; Dried Flammable Prep: Yes; Blood Products Available: N/A;. Lidocaine 1% infiltrated to the right radial. Arterial access obtained. A 5 omani Christopher catheter in over wire. Multiple views taken of left coronary artery. Catheter out over exchange wire. A 5 omani JR4 catheter in over wire. Multiple views taken of right coronary artery. Dr Griffin called for consult. Catheter out. A 5 omani Angled Pig catheter in over wire. EDP Sample taken: LV 124/12,27; HR: 76 BPM; SpO2: 98%. LV gram performed in COLE @ 10 mL/second for a total of 30 mL. EDP Sample taken: LV 127/14,29; HR: 76 BPM; SpO2: 98%. Pullback taken: LV 116/15,26; AO 140/68(93); Mean: 0mmHg, Peak to Peak: 0mmHg, SEP: 5sec/min; HR: 58 BPM; SpO2: 99%. Side port of sheath attached to Normal Saline flush at KVO to maintain patency. Physician review of cine films. Family updated by Dr Griffin and Dr Aggarwal. Physician scrubbed in. Catheter out. 6 omani XB 3 guide catheter was inserted over the wire. IFR guidewire was advanced through the guide catheter to lesion in the ostial left main. FFR guidewire was advanced through the guide catheter to lesion in the prox LAD. IFR spot of Ostial Left Main was 1.0. IFR wire out. New IFR wire used due to misreading in the LAD. IFR guidewire was advanced through the guide catheter to lesion in the prox LAD. IFR spot of LAD is 0.96. Guide catheter out. Wire out. Post Procedure: Pulses reassessed and unchanged. PERRLA. Strong, equal hand development eng bilaterally. No VTE prophylaxis required. A TR Band was successful obtaining hemostatsis at the Right Radial artery insertion site. Medication's Wasted: Nitro = 50 mg. Medication's Wasted: Heparin = 1000 units. Medication's Wasted: Other = versed 1 mg. Medication's Wasted: Other = fentanyl 75 mcg. Total IV fluids: 334 mL. Post-op diagnosis: CAD. Complications: none. Estimated blood loss: 5mL-10mL. Responsiveness - Normal response to verbal stimuli; alert and oriented, PERRLA. Airway - Unaffected, no intervention required; spontaneous ventilation. Circulation: W/N/L, pulses unchanged. Nausea/Vomiting: No. Procedure completed. Patient transferred by wheelchair to 1st floor. Vital chart was stopped. Access Site Site: Right Radial artery Sheath Size: 6 Fr Hemostasis Method: TR Band Hemostasis Success: Successful Procedure Medications Start: 12:15 PM Stop: 12:15 PM Medication: Versed 1 mg and Fentanyl 25 mcg Amount: 1 Route: I.V. Start: 12:23 PM Stop: 12:23 PM Medication: Versed Amount: 1 mg Route: I.V. Start: 12:26 PM Stop: 12:26 PM Medication: 0.9% Saline Amount: 250 ml Route: I.V. bolus Start: 12:26 PM Stop: 12:26 PM Medication: Verapamil Amount: 5 mg Route: I.A. Start: 12:29 PM Stop: 12:29 PM Medication: Heparin Amount: 5000 units Route: I.V. Start: 12:58 PM Stop: 12:58 PM Medication: Fentanyl Amount: 25 mcg Route: I.V. I, the attending physician, have reviewed and verified all procedure medications. Yes, all medications given per verbal order History/Risk Factors Hypertension: Yes Dyslipidemia: No Peripheral Arterial Disease (PAD): No Myocardial Infarction (CO): No Obesity: No Tobacco Use: Former Prior Interventions PCI: No CABG: No Valve Surgery: No Report Signatures Diagnostic Workflow Finalized by Dr Roman Aggarwal MD [facility] on 10/05/2022 03:39 PM Interventional Workflow Finalized by Dr. Michael Griffin MD on 10/05/2022 01:50 PM
[2022-10-05] MEDS: diphenhydrAMINE 50 mg Capsule PO (11:25)
--- NOTE | 2022-10-05 11:33 | W.PM.OPSUD ---
Surgery/Procedure H&P Update DATE OF PROCEDURE: October 05, 2022 DATE H&P PERFORMED: 09/19/22 H&P UPDATE INFORMATION: I have reviewed H&P completed within last 30 days, I have examined patient prior to procedure and No changes to prior documentation PREOP DIAGNOSIS: suspected CAD PRIMARY INDICATION FOR PROCEDURE: Myocardial perfusion imaging/atrial fibrillation PLANNED PROCEDURE: Operation Date: 10/05/22 12:00 Proposed Procedures p [facility] W/- W/O 82397, R94.39,R03.0,R07.9,I48.91(Left) - Roman Aggarwal MD PATIENT REASSESSED PRIOR TO SEDATION, WITH NO CHANGE NOTED: Yes PHYSICAL EXAM: alert, oriented x 3, clear to auscultation bilaterally and regular rate & rhythm (Irregularly irregular rhythm) AIRWAY EVAL/ANESTHESIA PLAN: see other exam findings, ASA III, Monitored Anesthesia, Local Anesthesia, Risks, benefits & alternatives of sedation and/or procedure discussed and Patient agrees to continue as planned
[2022-10-05 11:37] LABS: Basophils % 0.5 %; Eosinophils # 0.1 10^3/uL (0.0-0.8); Eosinophils % 1.2 %; Hematocrit 44.4 % (42.0-52.0); Hemoglobin 14.6 g/dL (11.7-16.6); Lymphocytes # 2.1 10^3/uL (0.8-4.8); Lymphocytes % 26.3 %; Mean Corpuscular HGB Conc 32.9 g/dL (30.0-36.0); Mean Corpuscular Hemoglobin 27.9 pg (28.0-34.0); Mean Corpuscular Volume 84.7 fl (80-94); Mean Platelet Volume 11.4 fL (7.4-10.4); Monocytes # 0.8 10^3/uL (0.2-0.9); Monocytes % 10.5 %; Neutrophils # 4.72 10^3/uL (1.8-7.7); Neutrophils % 60.7 %; Nucleated Red Blood Cells % 0 %; Platelet Count 158 10^3/cmm (130-400); Red Blood Count 5.24 10^6/uL (4.1-5.3); Red Cell Distribution Width 15.8 % (12.1-15.1); White Blood Count 7.8 10^3/uL (4.0-10.0)
[2022-10-05 11:54] LABS: Anion Gap 14.6 (5-19); Blood Urea Nitrogen 13 mg/dL (8-23); Calcium 9.1 mg/dL (8.5-10.5); Carbon Dioxide 25 mmol/L (22-29); Chloride 102 mmol/L (98-107); Glucose 111 mg/dL (65-115); Osmolality Calculated 285 mOsm/kg (285-295); Potassium 4.6 mmol/L (3.5-5.1); Sodium 137 mmol/L (136-145)
[2022-10-05] MEDS: losartan 50 mg Tablet 25 MG PO (15:28)
[2022-10-05] MEDS: gabapentin 300 mg Capsule PO ×2 (15:30→22:12)
[2022-10-05] MEDS: sodium chloride 0.9% 1,000 ML 100 ML IV (15:31)
[2022-10-05] MEDS: apixaban 5 mg Tablet PO (18:39)
[2022-10-06] VITALS (7 sets, daily range): BP systolic 90–127; BP diastolic 60–73; PULSE 62–75; RESP 14–18; TEMP 36.4–37; O2SAT 94–98
--- NOTE | 2022-10-06 08:16 | PM.DCS ---
Discharge Providers Date of Admission: 10/05/22 14:09 Date of Discharge: October 06, 2022 Attending Provider at Admission: Roman Aggarwal MD Attending Provider at Discharge: Roman Aggarwal MD Primary Care Provider: Mery Ruiz MD Diagnoses at Discharge Discharge Diagnosis (1) Abnormal stress test: Status: Acute (2) Elevated blood pressure reading: Status: Acute (3) Chest pain: Status: Acute (4) Atrial fibrillation by electrocardiogram: Status: Acute (5) CAD (coronary artery disease): Status: Acute (6) Ischemic cardiomyopathy: Status: Acute (7) Anticoagulation adequate with anticoagulant therapy: Status: Acute Reason for Visit Reason for Visit: I48.91 Brief History: Patient was seen in consultation by Dr. Aggarwal several weeks ago for atrial fibrillation. He was started on an anticoagulant. AV brittany blockers were not necessary because he is not tachycardic. He had stress testing. The stress test was abnormal so he was admitted yesterday for elective coronary angiography. Hospital Course Hospital Course Angiogram was performed via the right radial artery. This revealed a left dominant system with an occluded circumflex and a normal nondominant right coronary artery. There was a 40% left main lesion which was eccentric in the ostium and a 40% proximal LAD lesion. His ejection fraction is 37%. I was asked to perform IFR on the left main and LAD lesions. They were 1.0 and 0.96 respectively. Therefore no intervention was recommended. He was started on losartan and Aldactone. He was kept overnight to ensure those medications were without side effects or other problems. At the time of discharge his right radial artery area is flat, dry without bleeding or hematoma. I had a long discussion with the patient and his today about the medications, his coronary anatomy and about expectations going forward. Physical Exam Narrative: GENERAL: In general he is awake alert and comfortable today and anxious to go home HEENT: Exam within normal limits. NECK: Supple without jugular vein distention. The carotid upstroke is normal without bruits. BACK: Exam normal. LUNGS: Clear. HEART: Irregular rate and rhythm ABDOMEN: Benign without organomegaly or tenderness. EXTREMITIES: No edema. NEUROLOGIC: Exam normal. SKIN: Unremarkable. 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 Routine Exams 10/05/22 11:00 Completed Laboratory Results WBC 7.8 10^3/uL (4.0-10.0) 10/05/22 11:20 RBC 5.24 10^6/uL (4.1-5.3) 10/05/22 11:20 Hgb 14.6 g/dL (11.7-16.6) 10/05/22 11:20 Hct 44.4 % (42.0-52.0) 10/05/22 11:20 MCV 84.7 fl (80-94) 10/05/22 11:20 MCH 27.9 pg (28.0-34.0) L 10/05/22 11:20 MCHC 32.9 g/dL (30.0-36.0) 10/05/22 11:20 RDW 15.8 % (12.1-15.1) H 10/05/22 11:20 Plt Count 158 10^3/cmm (130-400) 10/05/22 11:20 MPV 11.4 fL (7.4-10.4) H 10/05/22 11:20 Neut % (Auto) 60.7 % 10/05/22 11:20 Lymph % (Auto) 26.3 % 10/05/22 11:20 Holt % (Auto) 10.5 % 10/05/22 11:20 Eos % (Auto) 1.2 % 10/05/22 11:20 Baso % (Auto) 0.5 % 10/05/22 11:20 Neut # (Auto) 4.72 10^3/uL (1.8-7.7) 10/05/22 11:20 Lymph # (Auto) 2.1 10^3/uL (0.8-4.8) 10/05/22 11:20 Holt # (Auto) 0.8 10^3/uL (0.2-0.9) 10/05/22 11:20 Eos # (Auto) 0.1 10^3/uL (0.0-0.8) 10/05/22 11:20 Baso # (Auto) 0.0 10^3/uL (0.0-0.1) 10/05/22 11:20 Nucleated RBC % (auto) 0 % 10/05/22 11:20 Nucleated RBCs # 0.0 /100WBC 10/05/22 11:20 Sodium 137 mmol/L (136-145) 10/05/22 11:20 Potassium 4.6 mmol/L (3.5-5.1) 10/05/22 11:20 Chloride 102 mmol/L (98-107) 10/05/22 11:20 Carbon Dioxide 25 mmol/L (22-29) 10/05/22 11:20 Anion Gap 14.6 (5-19) 10/05/22 11:20 BUN 13 mg/dL (8-23) 10/05/22 11:20 Creatinine 0.9 mg/dL (0.7-1.2) 10/05/22 11:20 GFR Calculation Not Reportable 10/05/22 11:20 Glucose 111 mg/dL (65-115) 10/05/22 11:20 Calculated Osmolality 285 mOsm/kg (285-295) 10/05/22 11:20 Calcium 9.1 mg/dL (8.5-10.5) 10/05/22 11:20 Procedures Performed Left heart catheterization, coronary angiography, left ventriculography, IFR of the left main and LAD Vitals Last Vital Signs Temp 97.9 F 10/06/22 03:40 Pulse 64 10/06/22 06:00 Resp 14 10/06/22 03:40 BP 111/68 10/06/22 05:29 Pulse Ox 96 10/06/22 03:40 O2 Del Method Room Air 10/06/22 03:40 Discharge Plan Discharge Patient Disposition: Home Condition: Stable Prescriptions: New spironolactone 25 mg Tablet 25 mg PO DAILY Qty: 30 2RF losartan 50 mg Tablet 25 mg PO DAILY 30 Days Qty: 30 2RF Continued gabapentin 300 mg capsule 300 mg PO TID Qty: 90 3RF Eliquis 5 mg tablet 5 mg PO BID Qty: 60 5RF ibuprofen 600 mg tablet 600 mg PO Q8H PRN (Reason: pain) Qty: 14 0RF Discharge Orders: Discharge Order (Routine); Ordered 10/06/22 Ordered By: Michael Griffin Referrals: Roman Aggarwal MD [Physician] - 3 months (Your Dr. Aggarwal follow up appointment will be scheduled during your Radha Mercado appointment. Thank you.) Radha Mercado FNP [Nurse Practitioner] - 7-10 days (Please call Gretchen Mercado's Office on Saturday at [phone] to schedule a follow up appointment for 7-10 days. Thank you. Check right radial artery and chemistry panel) Discharge Diet: Cardiac Discharge Activity: Increase activity as tolerated Patient Instructions: Spironolactone (By mouth) (Cresencio Moreno), Losartan (By mouth) (Brian), Coronary Angioplasty (DC), Opioid Safety, Post Angiogram Home Care Instructions Activity Restrictions/Additional Instructions: No lifting over 5 pounds for 2 days with the right arm. Discharge Attestations Time Spent in Discharge Care*: greater than 30 min Quality Metrics Clinical Quality Measures [ No reported AMI, CVA or VTE this stay] Coding Level of Care Code 47846 Total time (in minutes) for Discharge: 40 Diagnoses Abnormal stress test R94.39 Elevated blood pressure reading R03.0 Chest pain R07.9 Atrial fibrillation by electrocardiogram I48.91 CAD (coronary artery disease) I25.10 Ischemic cardiomyopathy I25.5 Anticoagulation adequate with anticoagulant therapy Z79.01
[2022-10-06] MEDS: apixaban 5 mg Tablet PO (08:20)
[2022-10-06] MEDS: spironolactone 25 mg Tablet PO (08:20)
[2022-10-06] MEDS: gabapentin 300 mg Capsule PO (08:20)
[2022-10-06] MEDS: losartan 50 mg Tablet 25 MG PO (08:21)
--- NOTE | 2022-10-06 09:44 | PC.NURSE ---
Discharge Note Patient discharged to home via PV accompanied by spouse. Discharge instructions reviewed with patient and/or inbound call center representative. Mobile pharmacy medications and/or prescriptions provided. Belongings/home medications returned.
== END 2022-10-06 09:30 | disposition home or self-care (01) ==
LOC: CSU 14:10
PROVIDERS: Internal Medicine Cardiovascular Disease; Admitting Provider Internal Medicine Cardiovascular Disease; PCP Family Medicine; Visit Provider Internal Medicine Cardiovascular Disease
DX: I25.119 Atherosclerotic heart disease of native coronary artery with unspecified angina pectoris (principal); I48.91 Unspecified atrial fibrillation; I10 Essential (primary) hypertension; I25.5 Ischemic cardiomyopathy; Z79.01 Long term (current) use of anticoagulants
CPT/HCPCS: 36415; 80048; 85025; 93458; 93571; 93572; 96365; 99152; 99153; C1769; C1887; C1894; G0378; J1644; J2250; J3010; J3490; J7030; Q0163; Q9967

== ENCOUNTER → 2022-10-11 10:22 | Outpatient (BNVA) | payer MEDICARE, SELFPAY | PROVIDERS: PCP Family Medicine; Visit Provider Nurse Practitioner Family | DX: I25.10 Atherosclerotic heart disease of native coronary artery without angina pectoris (principal); I48.91 Unspecified atrial fibrillation; Z79.01 Long term (current) use of anticoagulants; I10 Essential (primary) hypertension | CPT/HCPCS: 36415; 80048; 99214 ==

== ENCOUNTER → 2022-10-22 10:21 | Outpatient (BNVA) | payer MEDICARE, SELFPAY | PROVIDERS: PCP Family Medicine; Visit Provider Family Medicine | DX: I25.10 Atherosclerotic heart disease of native coronary artery without angina pectoris (principal); Z13.6 Encounter for screening for cardiovascular disorders; Z13.29 Encounter for screening for other suspected endocrine disorder; Z12.5 Encounter for screening for malignant neoplasm of prostate; I10 Essential (primary) hypertension; M47.812 Spondylosis without myelopathy or radiculopathy, cervical region; I48.91 Unspecified atrial fibrillation | CPT/HCPCS: 80061; 84443; G0103 ==

== ENCOUNTER → 2023-02-07 11:01 | Outpatient (BNVA) | payer MEDICARE, SELFPAY | PROVIDERS: PCP Family Medicine; Visit Provider Internal Medicine Cardiovascular Disease | DX: I48.91 Unspecified atrial fibrillation (principal); I25.10 Atherosclerotic heart disease of native coronary artery without angina pectoris; I95.2 Hypotension due to drugs; Z87.891 Personal history of nicotine dependence; Z79.01 Long term (current) use of anticoagulants | CPT/HCPCS: 99214 ==

== ENCOUNTER → 2023-08-13 14:02 | Outpatient (BNVA) | payer MEDICARE, SELFPAY | PROVIDERS: PCP Family Medicine; Visit Provider Internal Medicine Cardiovascular Disease | DX: I48.91 Unspecified atrial fibrillation (principal); I25.5 Ischemic cardiomyopathy; I25.10 Atherosclerotic heart disease of native coronary artery without angina pectoris; I10 Essential (primary) hypertension; Z79.01 Long term (current) use of anticoagulants; Z87.891 Personal history of nicotine dependence | CPT/HCPCS: 99214 ==

== ENCOUNTER → 2024-02-19 13:53 | Outpatient (BNVA) | payer MEDICARE, SELFPAY | PROVIDERS: PCP Family Medicine; Visit Provider Internal Medicine Cardiovascular Disease | DX: I25.10 Atherosclerotic heart disease of native coronary artery without angina pectoris (principal); I48.91 Unspecified atrial fibrillation; Z79.01 Long term (current) use of anticoagulants; I25.5 Ischemic cardiomyopathy; Z87.891 Personal history of nicotine dependence; I10 Essential (primary) hypertension | CPT/HCPCS: 99214 ==

== ENCOUNTER → 2024-03-02 14:54 | Outpatient (BNVA) | payer MEDICARE, SELFPAY | PROVIDERS: PCP Family Medicine; Visit Provider Nurse Practitioner Family | DX: I10 Essential (primary) hypertension (principal); R07.9 Chest pain, unspecified; I48.91 Unspecified atrial fibrillation; Z12.5 Encounter for screening for malignant neoplasm of prostate; M50.30 Other cervical disc degeneration, unspecified cervical region | CPT/HCPCS: 80053; 80061; 84443; 85025; G0103 ==

== ENCOUNTER → 2024-12-16 15:01 | Outpatient (BNVA) | payer MEDICARE, SELFPAY | PROVIDERS: PCP Family Medicine; Visit Provider Internal Medicine Cardiovascular Disease | DX: I25.10 Atherosclerotic heart disease of native coronary artery without angina pectoris (principal); I10 Essential (primary) hypertension; I48.91 Unspecified atrial fibrillation; Z79.01 Long term (current) use of anticoagulants; I25.5 Ischemic cardiomyopathy; Z87.891 Personal history of nicotine dependence | CPT/HCPCS: 99214 ==

== ENCOUNTER → 2025-02-09 08:30 | Outpatient (BNVA) | payer MEDICARE, SELFPAY | PROVIDERS: PCP Nurse Practitioner Family; Visit Provider Nurse Practitioner Family | DX: I10 Essential (primary) hypertension (principal); R07.9 Chest pain, unspecified; I48.91 Unspecified atrial fibrillation | CPT/HCPCS: 80053; 80061; 84443; 85025 ==